=== PATIENT | female | born 1955 | race Caucasian/White ===

== ENCOUNTER 2018-05-02 13:45 | Emergency (ER) | payer OTHER ==
[2018-05-02] MEDS ORDERED: TDAP ADULT 0.5 ML INJ (BOOSTRIX) IM ONE (14:01)
[2018-05-02] MEDS ORDERED: LET GEL TOPICAL 1 EA SYR TP ONE (14:01)
--- NOTE | 2018-05-02 14:02 | EDPHY ---
H & P Stated Complaint: Lacs L finger and thumb Source: Patient Exam Limitations: No limitations - Personal History Current Tetanus/Diphtheria Vaccine: No Current Tetanus Diphtheria and Acellular Pertussis (TDAP): No - Medical/Surgical History Hx Asthma: No Hx Chronic Respiratory Disease: No Hx Diabetes: No Hx Cardiac Disease: No Hx Renal Disease: No Hx Cirrhosis: No Hx Alcoholism: No Hx HIV/AIDS: No Hx Splenectomy or Spleen Trauma: No Other PMH: essential tremor. denies - Social History Smoking Status: Never smoked Time Seen by Provider: 05/02/18 14:01 HPI/ROS: HPI: This is a 63-year-old female who presents with Chief Complaint: Lacerations to left finger and thumb Location: Left index finger and thumb Quality: Laceration Duration: Prior to arrival Signs and Symptoms: + bleeding, no radiation, no numbness, no weakness, no tingling, no incontinence, no decreased range of motion, no swelling, no pain, no fever Timing: Acute Severity: Mild Context: Patient is right-hand dominant, presents with accidentally cutting her left thumb at the tip where the nail is as well as her left index finger with a rotary surface grinder while cutting fabric prior to arrival. She reports that there was minimal bleeding and hardly any pain. The concern is whether she needs stitches or not. Tetanus status unknown. Denies radiation, weakness, decreased range of motion. Does Not take any blood thinners. Modifying Factors: She applied direct pressure and bleeding stopped Comment: ROS: see HPI Constitutional: No fever, no chills, no weight loss Eyes: No blurred vision Respiratory: No shortness of breath, no cough Cardiovascular: No chest pain Gastrointestinal: No nausea, no vomiting no diarrhea Genitourinary: No dysuria Extremities: No myalgias Neurologic: No weakness, no numbness Skin: No rashes Hematologic: No bruising, no bleeding MEDICAL/SURGICAL/SOCIAL HISTORY: Medical history: Essential tremor Surgical history: Denies Social history: Never smoked. CONSTITUTIONAL: Extremely polite and cooperative elderly white female, awake and alert, no obvious distress HEENT: Atraumatic and normocephalic. EXTREMITIES: 2/2 pulses, strength 5/5, left thumb shows nail injury at the distal tip and v-shaped formation still intact. Left index finger shows superficial 1/8 cm, linear, simple laceration. DIP/PIP/MCP flexion/extension intact with good light touch sensation. no deformities, no clubbing, no cyanosis or edema. NEUROLOGICAL: no focal neuro deficits. GCS 15. Light touch sensation intact. SKIN: Warm and dry, no erythema. no rash. Good capillary refill. (Idalia Hill) Constitutional: Initial Vital Signs Temperature (C) 37.0 C 05/02/18 13:46 Heart Rate 69 05/02/18 13:46 Respiratory Rate 16 05/02/18 13:46 Blood Pressure 141/76 H 05/02/18 13:46 O2 Sat (%) 97 05/02/18 13:46 O2 Delivery Mode Room Air Allergies/Adverse Reactions: amoxicillin Allergy (Verified 05/02/18 13:50) Home Medications: Medication Instructions Recorded Estrogens, Conjugated 05/02/18 Propranolol HCl 05/02/18 Medical Decision Making Procedures: Procedure: Laceration repair. Verbal consent was obtained from the patient. The 1/4 cm, simple, linear, superficial laceration on the left index finger was anesthetized in the usual fashion using 3 mL of 1% lidocaine without epinephrine. The wound was irrigated , draped and explored to its base with a gloved finger. There were no deep structures involved. No tendon injury was identified. The wound was repaired with #5, 5 0 Prolene in simple interrupted pattern. Good hemostasis achieved and patient tolerated procedure well. The procedure was performed by myself. Procedure: Laceration repair. Verbal consent was obtained from the patient. The left thumb, superficial, 1/4 cm laceration involving the nail was anesthetized in the usual fashion using 3 mL of 1% lidocaine without epinephrine. The wound was irrigated, draped and explored to its base with a gloved finger. There were no deep structures involved. No tendon injury was identified. The wound was repaired with Dermabond. Good hemostasis was achieved and patient tolerated procedure well. The procedure was performed by myself. (Idalia Hill) ED Course/Re-evaluation: Tetanus booster ordered Copiously irrigated Lacerations closed with Dermabond No signs of neurovascular compromise/tenting of skin/compartment syndrome/ extremities and joints examined above and below area of concern and are neurovascularly intact. This patient was seen under the supervision of my secondary supervising physician. I evaluated care for this patient independently. Discussed this patient with Dr. Leon who did not see the patient. (Idalia Hill) Differential Diagnosis: Differential diagnosis includes but is not limited to laceration, nerve injury, tendon injury, foreign body. (Idalia Hill) Other Provider: The patient was evaluated and managed by the Physician Jewel Bearing Driller. My co- signature indicates that I have reviewed this chart and I agree with the findings and plan of care as documented. I am the secondary supervising physician. (Sia Leon) - Data Points Medications Given: Discontinued Medications Diphtheria/Tetanus/Acell Pertussis (Boostrix) 0.5 ml IM .ONCE ONE Stop: 05/02/18 14:02 Last Admin: 05/02/18 14:15 Dose: 0.5 ml Tetracaine/Epinephrine/Lidocaine (Let Gel Topical) 1 ea TP EDNOW ONE Stop: 05/02/18 14:02 Last Admin: 05/02/18 14:19 Dose: Not Given Departure - Departure Disposition: Home, Routine, Self-Care Clinical Impression: Laceration of left thumb with damage to nail, Laceration of left index finger w /o foreign body w/o damage to nail Condition: Good Instructions: Care For Your Stitches (ED), Finger Laceration (ED), Skin Adhesive Care (ED) Additional Instructions: Keep the dressing dry and in place for 48 hours. After 48 hours, you may remove the dressing; wash the site daily with mild soap and water; then pat dry. Allow the skin glue to slowly dissolve on its own. Take Tylenol 650 mg every 4 hours and/or Ibuprofen 600 mg every 8 hours with food as needed for pain. Wound Care Follow-Up: Removal of sutures in [ 10 ] days. Suture removal is complimentary in uncomplicated cases. Infection or abnormal findings would require reevaluation by the MD. In that case, you may be billed. Return to the ER immediately if you experience redness, red streaks, have fevers /chills, flu like symptoms, limited range of motion, or any other symptoms that concern you. Referrals: YASMINE ROSSI [Other] - Follow Up Only If Needed
[2018-05-02] MEDS ORDERED: SKIN ADHESIVE (DERMABOND) 1 EACH TP ONE (14:48)
[2018-05-02 15:34] VITALS: BP 145/87
== END 2018-05-02 15:33 | disposition home or self-care (01) ==
PROC: 0HQGXZZ Repair Left Hand Skin, External Approach (ICD-10-PCS; principal; 2018-05-02)
DX: S61.211A Laceration without foreign body of left index finger without damage to nail, initial encounter (principal); S61.112A Laceration without foreign body of left thumb with damage to nail, initial encounter; Z23 Encounter for immunization; W26.8XXA Contact with other sharp object(s), not elsewhere classified, initial encounter; Y99.8 Other external cause status; Y93.89 Activity, other specified